=== PATIENT | female | born 1960 | race Caucasian/White ===

== ENCOUNTER 2022-02-19 12:19 | Observation (INO) | payer MEDICAID, SELFPAY ==
[2022-02-19] VITALS (14 sets, daily range): BP systolic 121–198; BP diastolic 58–89; PULSE 64–78; RESP 6–18; TEMP 36.1–36.8; O2SAT 92–97; BMI 22.6; BMI 22.2
--- NOTE | 2022-02-19 12:33 | CT_ITS ---
STUDY: CT HEAD STROKE PROTOCOL W/O CONTRAST INJECTION REASON FOR EXAM: Female, 61 years old. Neuro deficit, acute, stroke suspected RADIATION DOSAGE (If Supplied By Facility): CTDIvol = ( 44.99 ) mGy, DLP = ( 745.49 ) mGycm TECHNIQUE: Transaxial CT imaging of the brain was performed without administration of intravenous contrast material. Individualized dose optimization techniques were used for this CT. COMPARISON: No relevant priors. FINDINGS: Normal soft tissue structures. Normal calvarium. Normal size ventricles and extra-axial spaces for the patient''s age. Normal white matter tracts of the cerebral hemispheres. Normal basal ganglia and thalami. Normal brainstem. Normal cerebellum. There is no intracranial hemorrhage. There are no findings of an acute ischemic infarction. Minimal mucosal thickening along the inferior lateral aspect of the right maxillary sinus. ASPECT score: 10 CT/STROKE Brain/Head without Cont IMPRESSION: Normal unenhanced CT scan of the brain. N.B. : The above Results were Read Back by Joe Calabrese MD to Chino Ortiz and understanding confirmed on 02/19/2022 12:49:03 (ET). Electronically Signed: Joe Calabrese MD at 12:50 EDT ,
--- NOTE | 2022-02-19 12:33 | EKG12_ITS ---
Test Reason : STROKE Blood Pressure : / mmHG Vent. Rate : 077 BPM Atrial Rate : 077 BPM P-R Int : 182 ms QRS Dur : 096 ms QT Int : 380 ms P-R-T Axes : 057 054 066 degrees QTc Int : 430 ms Normal sinus rhythm Normal ECG Confirmed by JESU GUERRERO, VALERY ([id number]), photography editor NORMA MIRANDA ([id number]) on 02/25/2022 12:39:52 PM Referred By: RONIT Confirmed By:VALERY NAILS MD
--- NOTE | 2022-02-19 12:33 | NURSING ---
1232 STROKE ALERT CALLED
--- NOTE | 2022-02-19 12:34 | CT_ITS ---
STUDY: CTA HEAD AND NECK WITH CONTRAST REASON FOR EXAM: Female, 61 years old. Neuro deficit, acute, stroke suspected RADIATION DOSAGE (If Supplied By Facility): CTDIvol = ( 19.29 ) mGy, DLP = ( 662.46 ) mGycm TECHNIQUE: CT angiography was performed with a multi-detector CT scanner. Data acquisition was obtained from the skull base through the vertex following intravenous administration of IV 100mL Isovue-370. MIP images were reconstructed from the axial data set. Post-processing of the angiographic images was performed, with multiplanar reformation and 3D reconstruction. Individualized dose optimization techniques were used for this CT. COMPARISON: No relevant priors. FINDINGS: Normal bilateral petrous carotid arteries. Normal right cavernous carotid artery with a normal supraclinoid bifurcation. Normal left cavernous carotid artery with a normal supraclinoid bifurcation. Normal right A1 segments of the anterior cerebral artery. Normal left A1 segments of the anterior cerebral artery. Normal intact anterior communicating artery (ACOM). Normal bilateral A2 segments of the anterior cerebral arteries. Normal right M1 and M2 segments of the middle cerebral arteries, with a normal M1 bifurcation. Normal left M1 and M2 segments of the middle cerebral arteries, with a normal M1 bifurcation. Normal right posterior communicating artery (PCOM). Normal left posterior communicating artery (PCOM). Normal bilateral vertebral arteries. Normal basilar artery with a normal basilar bifurcation. The visualized bilateral superior cerebellar (SCA) arteries are normal. Normal bilateral P1, P2 and visualized P3 segments of the posterior cerebral arteries. There is no demonstrated aneurysm of the [place] of [place]. Minimal mucosal thickening of the right maxillary sinus. AORTIC ARCH: There is minimal atherosclerotic calcific plaque formation of the aortic arch and great vessels arising from the aortic arch, without a hemodynamically significant stenosis. There is a normal origin of the brachiocephalic, left common carotid, and left subclavian arteries. Mild atherosclerotic plaque formation at the origin of the left subclavian artery. RIGHT CAROTID ARTERIES: Normal right common carotid artery (CCA). Normal right common carotid bulb. There is mild atherosclerotic plaque formation of the origin of the right internal carotid artery with less than 50% cross sectional diameter stenosis. Normal visualized cervical portion of the right internal carotid artery. Normal origin of the right external carotid artery (ECA). LEFT CAROTID ARTERIES: Normal left common carotid artery (CCA). Normal left common carotid bulb. There is mild atherosclerotic plaque formation of the origin of the left internal carotid artery with less than 50% cross sectional diameter stenosis. Normal visualized cervical portion of the left internal carotid artery. Normal origin of the left external carotid artery (ECA). VERTEBRAL ARTERIES: Normal bilateral vertebral arteries. CT/STROKE CTA Head AND Neck W/Con IMPRESSION: Minimal calcific plaque formation at the origin of the right and left internal carotid arteries. N.B. : The above Results were Read Back by Joe Calabrese MD to Chino Ortiz and understanding confirmed on 02/19/2022 13:05:25 (ET). Electronically Signed: Joe Calabrese MD at 13:06 EDT ,
--- NOTE | 2022-02-19 12:34 | ED.VIS.STROK ---
HPI History of Present Illness Chief Complaint: Numb/Ting Informant: patient and friend Narrative Narrative: Brought in here by private vehicle from work and coworker noted her left-sided facial droop an hour prior to arrival onset would be 1130. Patient states she is not been feeling well for 3 days just feeling fatigued. No cough no vomiting diarrhea no urinary symptoms. She went to work at 10 AM, reported that a coworker stated she did not look well however did not report any facial drooping noticed at that time. Patient was sitting down the table with a coworker that is currently present came in noted the drooping. He states he had recent Bah's palsy therefore he recognized this. She was brought here for evaluation. She denies any headache. She is on metoprolol for history of tremors she states she takes other medications unknown at this time. She is not a diabetic. She denies any stroke history. However she does report trouble with thinking. Prior similar symptoms: No PFSH PFSH Medical History Alcohol abuse Anxiety Depression Diabetes GERD (gastroesophageal reflux disease) Hyperthyroidism Hypothyroidism Migraines Smoker Home Medications Multi-Day with Iron 1 tab PO DAILY 02/19/22 [History Last Taken Unknown] atorvastatin [Lipitor] 40 mg PO QHS 02/19/22 [History Last Taken Unknown] calcium carbonate 600 mg PO QHS 02/19/22 [History Last Taken Unknown] cholecalciferol (vitamin D3) [Vitamin D3] 50 mcg PO QHS 02/19/22 [History Last Taken Unknown] escitalopram oxalate [Lexapro] 20 mg PO DAILY 02/19/22 [History Last Taken Unknown] naproxen sodium [Aleve] 440 mg PO DAILY 02/19/22 [History Last Taken Unknown] omeprazole 40 mg PO DAILY 02/19/22 [History Last Taken Unknown] propranolol 40 mg PO QHS 02/19/22 [History Last Taken Unknown] valacyclovir [Valtrex] 500 mg PO DAILY 02/19/22 [History Last Taken Unknown] aspirin 81 mg PO DAILY #30 tab 02/20/22 [Rx Last Taken Unknown] Allergy/AdvReac Type Severity Reaction Status Date / Time No Known Allergies Allergy Verified 02/19/22 12:23 Family History (Updated 02/19/22 @ 15:42 by Bela Espinal AUTOMATION ENGINEER, AUTOMATION ENGINEER-C) Father CAD (coronary artery disease) Heart disease Mother No cardiac disease Surgical History (Updated 02/19/22 @ 15:42 by Bela Espinal NP, AUTOMATION ENGINEER-C) Hx of tonsillectomy S/P tubal ligation Social History (Updated 02/19/22 @ 15:45 by Bela Espinal NP, AUTOMATION ENGINEER-C) Smoking Status: Current every day smoker tobacco type: cigarettes alcohol intake: former details: Sober substance use type: does not use ROS ROS ED Constitutional Constitutional ED: Denies chills, fever(s) or sweats Eyes Eyes: Denies change in vision ENT ENT ED: Denies dysphagia or sore throat Cardiovascular Cardiovascular: Denies chest pain, leg edema, palpitations or racing heartbeat Respiratory/Chest Respiratory/Chest: Denies cough, dyspnea or dyspnea on exertion Gastrointestinal Gastrointestinal: Denies abdominal pain, diarrhea, nausea or vomiting Genitourinary Genitourinary ED: Denies dysuria, hematuria or urinary frequency Musculoskeletal Musculoskeletal: Denies back pain, extremity pain or neck pain Integumentary Denies rash or wounds Neurologic Neurologic: Reports weakness; Denies headache(s) or paresthesias EXAM Physical Exam Const Vital Signs: 02/19/22 12:21 02/19/22 12:43 02/19/22 13:03 Temperature 96.9 F L Temperature Source Temporal Pulse Rate 76 73 Respiratory Rate 15 18 Blood Pressure 185/86 H 189/88 H Blood Pressure Mean 119 121 Pulse Ox 97 95 Oxygen Delivery Method Room Air Room Air 02/19/22 13:12 02/19/22 13:18 02/19/22 13:30 Temperature Temperature Source Pulse Rate 71 69 69 Respiratory Rate 14 15 16 Blood Pressure 198/89 H 180/77 H 188/80 H Blood Pressure Mean 125 111 116 Pulse Ox 97 96 95 Oxygen Delivery Method Room Air Room Air Room Air Positive well nourished and well developed General Appearance ED: well developed and NAD HEENT Reports moist mucous membranes normocephalic and atraumatic Eyes PERRL, EOMs intact bilaterally and conjunctivae normal General Eye ED: Yes normal appearance of both eyes Neck no lymphadenopathy and supple General: Negative for tenderness Chest Wall Chest: Negative for tenderness Resp normal respiratory effort and normal air movement Effort and Inspection: symmetric chest movement; Negative for respiratory distress Cardio regular rate, regular rhythm and no murmurs Peripheral Pulses: pulses 2+ throughout GI normal to inspection, nondistended, normoactive bowel sounds and non-tender Palpation: Negative for guarding or rebound tenderness present Back/Spine no CVA tenderness and no thoracic nor lumbar tenderness Extremity normal to inspection General Extremety ED: Negative for edema or tenderness General Extremity: Negative for edema Neuro oriented x3 and no sensory deficits noted Sensorium / Orientation: awake and alert Skin no rashes or lesions noted and no wounds STROKE Vital Signs/Narrative: Vital Signs Temp Pulse Resp BP Pulse Ox 02/19/22 13:30 69 16 188/80 H 95 02/19/22 13:18 69 15 180/77 H 96 02/19/22 13:12 71 14 198/89 H 97 02/19/22 13:03 73 18 189/88 H 95 02/19/22 12:21 96.9 F L 76 15 185/86 H 97 Inital Vital Signs reviewed: Yes NIHSS Initial: 1a Level of Consciousness: 0 1b LOC Questions (Score 2 if aphasic/stupor): 0 1c LOC Commands (Only score 1st attempt): 0 2 Best Gaze (If aphasic, use reflexive mvmts.): 0 3 Visual: 0 4 Facial Palsy: 1 5 Motor Arm Right (UN = amputation/fusion): 0 5 Motor Arm Left: 0 6 Motor Leg Right: 0 6 Motor Leg Left: 0 7 Limb ataxia (Only + if out of proportion): 0 8 Sensory (Aphasia/stupor=0 or 1, coma=2): 1 9 Best Language: 0 10 Dysarthria (mute, coma=2, intubated=UN): 0 11 Extinction and Inattention (only scored if +): 0 Total Score: 2 2nd Follow up: 1a Level of Consciousness: 0 1b LOC Questions (Score 2 if aphasic/stupor): 0 1c LOC Commands (Only score 1st attempt): 0 2 Best Gaze (If aphasic, use reflexive mvmts.): 0 3 Visual: 0 4 Facial Palsy: 1 5 Motor Arm Right (UN = amputation/fusion): 0 5 Motor Arm Left: 0 6 Motor Leg Right: 0 6 Motor Leg Left: 0 7 Limb ataxia (Only + if out of proportion): 1 8 Sensory (Aphasia/stupor=0 or 1, coma=2): 1 9 Best Language: 0 10 Dysarthria (mute, coma=2, intubated=UN): 0 11 Extinction and Inattention (only scored if +): 0 Total Score: 3 MDM MDM MDM Narrative Medical decision making narrative: Patient is NIH of 2 secondary to mild asymmetry of the left lip along with paresthesias left side of the face. Noted time of onset an hour ago, stroke team was activated. Initial blood pressure 185/86. EKG returned sinus rhythm. 1300: Stroke neurologist, Dr. Hurtado in the room I was present for evaluation, agrees that she is presenting with strokelike symptoms agrees with deficits she had paresthesias left side during reevaluation and she had mild ataxia of the left lower leg. She had slight lip droop. Therefore NIH of 3. She was able to ambulate down the north with neurology evaluation, due to no difficulties walking, she recommended holding TPA at this time. She recommended getting her blood pressure below 180. CT angiogram negative for LVO. She states with blood pressure down and symptoms clinically not worsening with the lower blood pressure we will plan to give baby aspirin and loaded with Plavix 600 mg and admission for stroke work-up. Repeat blood pressure systolic 198/89 will give labetalol. Will reevaluate the patient. 1345: Blood pressure improving goal systolic around 180 per neurology. No worsening deficits. Baby aspirin loading dose of Plavix of 600 mg ordered per recommendations of neurology. Will discuss with hospital team for admission for further stroke work-up. Chest x-ray 1 view reviewed by myself shows no acute process. Labs stable. 1405: I spoke with hospitalist Dr. Robles, updated patient's presentation and findings. She will be admitted to PCU. Lab Data Attestation: I reviewed the patient's lab results. Labs: Laboratory Results - last 24 hr 02/19/22 02/19/22 02/19/22 12:34 12:35 12:35 WBC 11.1 H RBC 4.07 L Hgb 13.1 Hct 39.5 MCV 97.1 MCH 32.2 H MCHC 33.2 RDW Std Deviation 47.1 H RDW Coeff of Анна 13.1 Plt Count 300 MPV 9.0 Immature Gran % (Auto) 0.300 Neut % (Auto) 59.5 Lymph % (Auto) 29.8 Baldwin % (Auto) 8.5 Eos % (Auto) 1.5 Baso % (Auto) 0.4 Absolute Neuts (auto) 6.6 Absolute Lymphs (auto) 3.31 Nucleated RBC % 0 PT 12.3 INR 1.0 APTT 33.1 Sodium Potassium Chloride Carbon Dioxide Anion Gap BUN Creatinine Estim Creat Clear Calc Est GFR (MDRD) Af Amer Est GFR (MDRD) Non-Af BUN/Creatinine Ratio Glucose Calcium Troponin I High Sens POC Glucose 114 H 02/19/22 12:35 WBC RBC Hgb Hct MCV MCH MCHC RDW Std Deviation RDW Coeff of Анна Plt Count MPV Immature Gran % (Auto) Neut % (Auto) Lymph % (Auto) Baldwin % (Auto) Eos % (Auto) Baso % (Auto) Absolute Neuts (auto) Absolute Lymphs (auto) Nucleated RBC % PT INR APTT Sodium 138 Potassium 4.4 Chloride 106 Carbon Dioxide 29.0 Anion Gap 3 L BUN 18 Creatinine 0.66 Estim Creat Clear Calc 70.80 Est GFR (MDRD) Af Amer 117 Est GFR (MDRD) Non-Af 97 BUN/Creatinine Ratio 27.4 H Glucose 100 Calcium 9.5 Troponin I High Sens < 3 L POC Glucose Radiography Diagnostic Testing: Clinical Impression(s) from Imaging Studies Brain CT 02/19/22 12:33 IMPRESSION: Normal unenhanced CT scan of the brain. N.B. : The above Results were Read Back by Joe Calabrese MD to Chino Ortiz and understanding confirmed on 02/19/2022 12:49:03 (ET). Electronically Signed: Joe Calabrese MD at 12:50 EDT , ADDENDUM: 02/19/22 1257 IMPRESSION: Normal unenhanced CT scan of the brain. N.B. : The above Results were Read Back by Joe Calabrese MD to Chino Ortiz and understanding confirmed on 02/19/2022 12:49:03 (ET). Electronically Signed: Joe Calabrese MD at 12:50 EDT , Head/Neck CTA 02/19/22 12:34 IMPRESSION: Minimal calcific plaque formation at the origin of the right and left internal carotid arteries. N.B. : The above Results were Read Back by Joe Calabrese MD to Chino Ortiz and understanding confirmed on 02/19/2022 13:05:25 (ET). Electronically Signed: Joe Calabrese MD at 13:06 EDT , ADDENDUM: 02/19/22 1313 IMPRESSION: Minimal calcific plaque formation at the origin of the right and left internal carotid arteries. N.B. : The above Results were Read Back by Joe Calabrese MD to Chino Ortiz and understanding confirmed on 02/19/2022 13:05:25 (ET). Electronically Signed: Joe Calabrese MD at 13:06 EDT , Chest X-Ray 02/19/22 13:35 IMPRESSION: Normal x-ray examination of the chest. Electronically Signed: Joe Calabrese MD at 13:45 EDT , EKG Initial EKG: Attestation: I personally reviewed and interpreted this EKG as follows: Comments: Normal sinus rhythm rate of 77, no ST or T wave changes. Stroke Documentation Questions Stroke Team Activated: Yes Reviewed Inclusion/Exclusion criteria: Yes Was Patient considered for Endovascular Intervention?: Yes-CTA +,PT transferred for further eval of endovascular intervention IV Alteplase (t-PA) Administered: No No contraindications for IV Alteplase (t-PA) administration.: No Alteplase (t-PA) risks, benefits, alternative discussed: Yes Not given: Patient refusal: No (Not recommended by stroke neurologist.) Critical Care Time Critical Care Time: Yes Critical care time (excluding procedures): 30-74 minutes, Discussing w/Patient &/or Family/Plating Equipment Tender, Discussing w/Consultants, Arranging Admission or Transfer, Performing Direct Patient Care at Bedside and - (35minutes) Discharge Plan Dx/Rx/DC Orders Clinical Impression: Acute CVA (cerebrovascular accident), Paresthesia, Elevated blood pressure reading in office without diagnosis of hypertension Disposition Disposition: Acute Care Hospital [facility] Discharge Date/Time: 02/19/22 14:42
--- NOTE | 2022-02-19 12:36 | NURSING ---
NO OLD EKGS
[2022-02-19 12:40] LABS: Bedside Glucose 114 mg/dL (74-106)
[2022-02-19 12:49] LABS: Absolute Lymphocyte Count 3.31 X10^3/uL (0.83-4.51); Absolute Neutrophil Count 6.6 X10^3/uL (2.0-7.7); Basophil# 0.05 X10^3/uL; Basophil% 0.4 % (0-1); Eosinophil# 0.17 X10^3/uL; Eosinophils% 1.5 % (0-5); Hematocrit 39.5 % (37-47); Hemoglobin 13.1 g/dL (12.0-15.0); Lymphocyte # 3.31 X10^3/ul (0.83-4.51); Lymphocyte % 29.8 % (19-41); Mean Corp Hgb Conc 33.2 g/dL (32-36); Mean Corpuscular Hgb 32.2 pg (27.0-32.0); Mean Corpuscular Volume 97.1 fL (81-99); Monocyte# 0.95 X10^3/uL; Monocyte% 8.5 % (0-10); NRBC Flagged by Analyzer 0 % (0-5); Neutrophil # 6.61 X10^3/uL (2.7-7.7); Neutrophil % 59.5 % (47-70); Platelet Count 300 K/mm3 (150-450); RBC Distribution Width CV 13.1 % (11.6-14.6); RBC Distribution Width SD 47.1 fl (35.1-43.9); Red Blood Count 4.07 M/mm3 (4.2-5.4); White Blood Count 11.1 K/mm3 (4.4-11.0)
[2022-02-19 12:58] LABS: Partial Thromboplast Time 33.1 Seconds (24.1-36.2); Prothrombin Time (Protime)PT. 12.3 SECONDS (11.7-14.9)
[2022-02-19 13:08] LABS: Anion Gap 3 (5-15); BUN 18 mg/dL (7-18); BUN/Creat Ratio 27.4 RATIO (10-20); Calcium,Total 9.5 mg/dL (8.5-10.1); Chloride 106 mmol/L (98-107); Creatinine, Serum 0.66 mg/dL (0.55-1.02); EST Glomerular Filtration Rate 97 mL/min (>60); Est Glom Filt Rate - Afr Amer 117 mL/min (>60); Glucose 100 mg/dL (74-106); Potassium 4.4 mmol/L (3.5-5.1); Sodium Level 138 mmol/L (136-145); Troponin-I HS < 3 pg/mL (3.0-54.0)
[2022-02-19] MEDS: Labetalol (Prefilled) 20 MG/4 ML IV (13:13)
--- NOTE | 2022-02-19 13:35 | RAD_ITS ---
STUDY: X-RAY CHEST REASON FOR EXAM: Female, 61 years old. Neuro deficit, acute, stroke suspected TECHNIQUE: Single AP portable view of the chest. COMPARISON: None. FINDINGS: EKG electrodes are seen. The lungs are clear and expanded. There is no demonstrated pleural abnormality. Normal size heart. Normal mediastinum and jose elias. Normal visualized pulmonary arteries. Normal visualized aortic arch and descending thoracic aorta. Normal visualized thoracic spine. Normal visualized ribs, clavicles, and shoulders. There is no demonstrated abnormality of the visualized soft tissue structures of the upper abdomen. RAD/Chest 1 View IMPRESSION: Normal x-ray examination of the chest. Electronically Signed: Joe Calabrese MD at 13:45 EDT ,
[2022-02-19] MEDS: Aspirin 81 MG TAB.CHEW PO (14:09)
[2022-02-19] MEDS: Clopidogrel Bisulfate 300 MG Tablet 600 MG PO (14:09)
--- NOTE | 2022-02-19 14:16 | CM.ED ---
MARIANN Note Referral Source: Case Find Referral Reason: Stroke Alert SW met with patient and her daughter. SW provided emotional support. SW remains available if needs arise. Becca ESCOBEDO
--- NOTE | 2022-02-19 14:23 | NURSING ---
PCU OBS NATHALIA CVA
--- NOTE | 2022-02-19 15:05 | CASEMGMT ---
RN CM Face to Face with patient for initial transition planning/care coordination assessment. RN CM introduced self and role at [facility]. Patient lying in bed, alert and oriented, daughter at bedside. Patient willing to participate in assessment and is able to answer all questions appropriately. Care providers, pharmacy, and demographics verified. Patient wishes to discharge home, denies need for home health at this time. Patient states she has no further needs or concerns at this time. CM to follow for discharge planning needs that may arise. PCP: [place] Specialists: none Preferred Pharmacy: [facility] Insurance: [employer] Prescription Benefit: yes Living Will/HPOA: none LNOK: son, daughter Living Arrangements: Patient lives with son in a single story home and 1 step and grab bar to enter the home. Patient states she is independent at home Transportation: self, son, daughter DME/HHC: Patient states she has grab bars in bathroom at home. Patient denies previous HHC or SNF. Patient states she smokes 1/2PPD of cigarettes per day. Disposition Plan: Patient to discharge home with family support and follow-up plans in place. Jahaira WARDN, RN, CM
--- NOTE | 2022-02-19 15:07 | MRI_ITS ---
STUDY: MRI BRAIN WITH AND WITHOUT CONTRAST REASON FOR EXAM: Female, 61 years old. parathesias L facial droop TECHNIQUE: Standardized multiplanar fat and water weighted pulse sequences were obtained. IV 12cc dotarem was administered for the contrast portion of the examination. COMPARISON: CT and CTA head 02/19/2022 FINDINGS: Normal size of the ventricles and extra-axial spaces for the patient''s age. Normal white matter tracts of the supratentorial brain. There are at least 2 nonspecific white matter lesions in the centrum semiovale on the left measuring up to 4 mm. There is no evidence for recent intracranial ischemia or other cause of cytotoxic edema on diffusion weighted imaging (DWI). Normal bilateral basal ganglia. Normal thalami. There is no extra-axial fluid accumulation. Normal flow voids within the major intracranial circulation suggesting patency by spin echo criteria. Normal venous enhancement. There is no enhancing intra-axial or extra-axial abnormality. Normal sella turcica, pituitary gland, infundibular stalk, optic chiasm and hypothalamus. Normal tectal plate and pineal gland. Normal midbrain, sammy and medulla. Normal cerebellum. Normal basal cisterns. Normal bilateral temporal bones. Normal bilateral internal auditory canals. No demonstrated orbital abnormality, within the constraints of a routine brain study. Follow up right maxillary sinus. Normal calvarium and skull base. Normal visualized soft tissue structures. Normal visualized upper cervical spine. MRI/Brain W/WO Contrast IMPRESSION: At least 2 nonspecific white matter lesions. Differential considerations include microangiopathic changes or demyelination. Electronically Signed: Jesus Frost MD at 18:36 EDT ,
[2022-02-19] MEDS: 0.9% Saline Lock 10 ML Syringe IV ×2 (15:22→21:35)
[2022-02-19] MEDS: LORazepam 2 MG/ML Syringe 1 MG IV (15:22)
--- NOTE | 2022-02-19 15:24 | ECHOD_ITS ---
Reason For Study: Dyspnea/SOB Procedure This was a 2D Doppler, Color Flow transthoracic echocardiogram. Bubble study performed. Exam performed portable in patient room. Left Ventricle Normal left ventricle. The estimated ejection fraction is 55-60 %. Right Ventricle Normal right ventricle. Normal systolic function. Atria Normal left atrium. Normal right atrium. Saline contrast study demonstrates small right to left interatrial shunt. Mitral Valve The mitral valve is structurally normal. No prolapse or stenosis seen. Trivial mitral valve insufficiency. Tricuspid Valve Normal tricuspid valve. Trivial tricuspid valve insufficiency. Aortic Valve Normal aortic valve. No aortic valve insufficiency. Pulmonic Valve The pulmonic valve is not well visualized. Great Vessels Normal aortic root. Pericardium/Pleural No pericardial effusion. Medication Performed a rapid injection of agitated mix of 9 cc saline and 1cc air to assess for atrial septal defect. MMode/2D Measurements & Calculations LVIDd: 3.6 cm IVSd: 1.1 cm Ao root diam: 3.0 cm LVIDs: 1.8 cm LVPWd: 0.98 cm LA dimension: 3.8 cm RVDd: 3.5 cm FS: 49.9 % LAV(MOD-bp): 34.2 ml LA A4 area: 16.5 cm2 RA A4 area: 15.7 cm2 LAV(MOD-bp) Indexed: 21.6 ml/m2 LAV(MOD-sp2): 27.2 ml LAV(MOD-sp4): 39.4 ml Time Measurements MV dec time: 0.24 sec Doppler Measurements & Calculations MV E max gerardo: 73.3 cm/sec Lat Peak E' Gerardo: 7.0 cm/sec Med Peak E' Gerardo: 7.4 cm/sec MV A max gerardo: 84.1 cm/sec E/E' lat: 10.5 E/E' med: 10.0 MV E/A: 0.87 MV V2 max: 93.4 cm/sec MV P1/2t max gerardo: 92.5 cm/sec Ao V2 max: 167.6 cm/sec MV max P.5 mmHg MV P1/2t: 84.3 msec Ao max P.2 mmHg MV V2 mean: 51.7 cm/sec MV dec slope: 321.3 cm/sec2 MV mean P.3 mmHg MV V2 VTI: 26.9 cm MVA(P1/2t): 2.6 cm2 LV V1 max: 148.3 cm/sec PA V2 max: 108.8 cm/sec TR max gerardo: 270.1 cm/sec LV V1 max P.8 mmHg TR max P.2 mmHg ECHO/Echo Complete Interpretation Summary The estimated ejection fraction is 55-60 %. RVSP calculated 34 mmhg No previous study to compare Ordering Physician: Jerry Robles Referring Physician: Shawn Avila Performed By: Abundio Ramos RCS
--- NOTE | 2022-02-19 15:38 | HP.PCM.HOS_ITS ---
Documented by User: Bela Espinal REHABILITATION CONSULTANT, REHABILITATION CONSULTANT-C 02/19/22 15:50 HPI - General General Date of Admission: 02/19/22 HPI Narrative QUEENIE DAVIS, is a 61 F who presents to the emergency room due to left-sided numbness, tingling. Patient reports this began while she was at work today. She states her coworker noticed left-sided facial droop as well. She denies s peech or vision changes. She denies left-sided weakness however states her left side feels different than her right side. She states her symptoms have resolved at this time. She denies history of headaches however states she has intermittent sharp pains in her head that go away. Patient also complains of generalized fatigue. She states she had Covid in November of this year and since then has not had any energy. She does report shortness of breath with exertion and intermittent sharp chest pain. She denies cardiac history. She states she attributed shortness of breath to smoking history. She denies history of TIA/CVA. She reports a history of essential tremors, anxiety/depression, hyperlipidemia, GERD, tobacco dependence. [facility] Medical History Alcohol abuse Anxiety Depression Diabetes GERD (gastroesophageal reflux disease) Hyperthyroidism Hypothyroidism Migraines Smoker Home Medications atorvastatin [Lipitor] 40 mg PO QHS 02/19/22 [History Last Taken Unknown] calcium carbonate [Dano-600] 600 mg PO QHS 02/19/22 [History Last Taken Unknown] cholecalciferol (vitamin D3) [Vitamin D3] 50 mcg PO QHS 02/19/22 [History Last Taken Unknown] escitalopram oxalate [Lexapro] 20 mg PO DAILY 02/19/22 [History Last Taken Unknown] dagngcplpbof-qmdt-nvfke acid [Multi-Day with Iron] 1 tab PO DAILY 02/19/22 [History Last Taken Unknown] naproxen sodium [Aleve] 440 mg PO DAILY 02/19/22 [History Last Taken Unknown] omeprazole 40 mg PO DAILY 02/19/22 [History Last Taken Unknown] propranolol 40 mg PO QHS 02/19/22 [History Last Taken Unknown] valacyclovir [Valtrex] 500 mg PO DAILY 02/19/22 [History Last Taken Unknown] Allergy/AdvReac Type Severity Reaction Status Date / Time No Known Allergies Allergy Verified 02/19/22 12:23 Family History (Updated 02/19/22 @ 15:42 by Bela Espinal NP, REHABILITATION CONSULTANT-C) Father CAD (coronary artery disease) Heart disease Mother No cardiac disease Surgical History (Updated 02/19/22 @ 15:42 by Bela Espinal NP, REHABILITATION CONSULTANT-C) Hx of tonsillectomy S/P tubal ligation Social History (Updated 02/19/22 @ 15:45 by Bela Espinal NP, REHABILITATION CONSULTANT-C) Smoking Status: Current every day smoker tobacco type: cigarettes alcohol intake: former details: Sober substance use type: does not use ROS Constitutional Constitutional: Reports fatigue; Denies change in weight, chills, fever(s) or weakness Cardiovascular Cardiovascular: Reports chest pain; Denies edema, lightheadedness, palpitations or syncope Respiratory/Chest Respiratory/Chest: Reports cough and shortness of breath with exertion; Denies dyspnea, productive cough, shortness of breath at rest or wheezing Gastrointestinal Gastrointestinal: Denies abdominal pain, constipation, diarrhea, nausea or vomiting Genitourinary Genitourinary: Denies burning urination, difficulty urinating, dysuria, he maturia, urinary frequency, urinary incontinence or urinary urgency Musculoskeletal Musculoskeletal: Denies back pain, joint pain or muscle weakness Integumentary Integumentary: Denies erythema, lesions, rash or wounds Neurologic Neurologic: Reports numbness, paresthesias and tingling; Denies abnormal speech, confusion, dizziness, focal weakness, seizure-like activity or syncope Psychiatric Psychiatric: Reports anxiety and depression Hematologic/Lymphatic Hematologic/Lymphatic: Denies anemia, easy bleeding or easy bruising Allergic/Immunologic Allergic/Immunologic: Denies hives or asthma Vital Signs Vital Signs Vital Signs: 02/19/22 12:21 02/19/22 12:43 02/19/22 13:03 Temperature 96.9 F L Temperature Source Temporal Pulse Rate 76 73 Respiratory Rate 15 18 Respiratory Effort Respiratory Depth Respiratory Pattern Blood Pressure 185/86 H 189/88 H Blood Pressure Mean 119 121 Blood Pressure Source Blood Pressure Position Blood Pressure Location Pulse Ox 97 95 Oxygen Delivery Method Room Air Room Air 02/19/22 13:12 02/19/22 13:18 02/19/22 13:30 Temperature Temperature Source Pulse Rate 71 69 69 Respiratory Rate 14 15 16 Respiratory Effort Respiratory Depth Respiratory Pattern Blood Pressure 198/89 H 180/77 H 188/80 H Blood Pressure Mean 125 111 116 Blood Pressure Source Blood Pressure Position Blood Pressure Location Pulse Ox 97 96 95 Oxygen Delivery Method Room Air Room Air Room Air 02/19/22 14:05 02/19/22 14:30 02/19/22 15:09 Temperature 98.0 F 97.2 F L Temperature Source Oral Temporal Pulse Rate 64 65 65 Respiratory Rate 16 6 L 18 Respiratory Effort Respiratory Depth Respiratory Pattern Blood Pressure 161/81 H 164/72 H 167/80 H Blood Pressure Mean 107 102 109 Blood Pressure Source Monitor Blood Pressure Position Semi-Fowlers Blood Pressure Location Right Arm Pulse Ox 96 97 95 Oxygen Delivery Method Room Air Room Air Room Air 02/19/22 15:29 Temperature Temperature Source Pulse Rate Respiratory Rate Respiratory Effort Normal Non-Labored Respiratory Depth Normal Respiratory Pattern Normal Blood Pressure Blood Pressure Mean Blood Pressure Source Blood Pressure Position Blood Pressure Location Pulse Ox Oxygen Delivery Method Room Air Weight Weight: 125 lb 10.616 oz Body Mass Index (BMI) 22.2 Physical Exam Const alert, oriented x3 and no apparent distress Constitutional Narrative: Orientation / Consciousness: awake, oriented to person, oriented to place and oriented to time HEENT normocephalic and moist oral mucous membranes Eyes PERRL, EOMs intact bilaterally and conjunctivae normal Neck no lymphadenopathy Resp normal respiratory effort and clear to auscultation bilaterally Cardio regular rate, regular rhythm and no murmurs Peripheral Pulses: pulses 2+ throughout GI normal to inspection, nondistended, normoactive bowel sounds, non-tender and non-distended Extremity normal to inspection Skin no rashes or lesions noted Lesions: no lesions Rashes: no rashes Trauma: no lacerations or abrasions Neuro CN's II-XII intact bilaterally, no focal motor deficits, no sensory deficits noted and deep tendon reflexes 2+ bilaterally Neuro Narrative: Mild left facial droop that resolved with smiling. Psych mental status grossly normal and affect normal Results Lab / Micro Data Result Diagrams: 02/19/22 12:35 02/19/22 12:35 Labs: Laboratory Results - last 24 hr 02/19/22 12:34: POC Glucose 114 H 02/19/22 12:35: WBC 11.1 H, RBC 4.07 L, Hgb 13.1, Hct 39.5, MCV 97.1, MCH 32.2 H , MCHC 33.2, RDW Std Deviation 47.1 H, RDW Coeff of Анна 13.1, Plt Count 300, MPV 9.0, Immature Gran % (Auto) 0.300, Neut % (Auto) 59.5, Lymph % (Auto) 29.8, Hardin % (Auto) 8.5, Eos % (Auto) 1.5, Baso % (Auto) 0.4, Absolute Neuts (auto) 6.6, Absolute Lymphs (auto) 3.31, Nucleated RBC % 0 02/19/22 12:35: PT 12.3, INR 1.0, APTT 33.1 02/19/22 12:35: Sodium 138, Potassium 4.4, Chloride 106, Carbon Dioxide 29.0, Anion Gap 3 L, BUN 18, Creatinine 0.66, Estim Creat Clear Calc 70.80, Est GFR (MDRD) Af Amer 117, Est GFR (MDRD) Non-Af 97, BUN/Creatinine Ratio 27.4 H, Glucose 100, Calcium 9.5, Troponin I High Sens < 3 L Radiology Impression Brain CT 02/19/22 12:33 IMPRESSION: Normal unenhanced CT scan of the brain. N.B. : The above Results were Read Back by Joe Calabrese MD to Chino Ortiz and understanding confirmed on 02/19/2022 12:49:03 (ET). Electronically Signed: Joe Calabrese MD at 12:50 EDT , ADDENDUM: 02/19/22 1257 IMPRESSION: Normal unenhanced CT scan of the brain. N.B. : The above Results were Read Back by Joe Calabrese MD to Chino Ortiz and understanding confirmed on 02/19/2022 12:49:03 (ET). Electronically Signed: Joe Calabrese MD at 12:50 EDT , Head/Neck CTA 02/19/22 12:34 IMPRESSION: Minimal calcific plaque formation at the origin of the right and left internal carotid arteries. N.B. : The above Results were Read Back by Joe Calabrese MD to Chino Ortiz and understanding confirmed on 02/19/2022 13:05:25 (ET). Electronically Signed: Joe Calabrese MD at 13:06 EDT , ADDENDUM: 02/19/22 1313 IMPRESSION: Minimal calcific plaque formation at the origin of the right and left internal carotid arteries. N.B. : The above Results were Read Back by Joe Calabrese MD to Chino Ortiz and understanding confirmed on 02/19/2022 13:05:25 (ET). Electronically Signed: Joe Calabrese MD at 13:06 EDT , Chest X-Ray 02/19/22 13:35 IMPRESSION: Normal x-ray examination of the chest. Electronically Signed: Joe Calabrese MD at 13:45 EDT , Assessment & Plan Assessment/Plan (1) Acute CVA (cerebrovascular accident): PLAN: 1. Left-sided numbness/tingling-rule out CVA. Brain CT and CTA of head and neck unremarkable. MRI of brain ordered. PT/OT/ST. Aspirin, statin. Lipid profile in a.m. [facility]. Echo in a.m. 2. Elevated blood pressure without history of hypertension-permissive given #1. If stroke ruled out, will initiate regimen. As needed hydralazine. 3. Atypical chest pain-trend enzymes. Obtain echo. 4. Essential tremors-on propranolol. 5. Anxiety/depression-on Lexapro. 6. Hyperlipidemia-continue statin. Fasting lipid panel in a.m. 7. GERD-continue PPI. 8. Tobacco dependence-encouraged cessation. 9. History of COVID-19 11/2021 DVT prophylaxis-Lovenox subcu This patient was seen by MARGUERITE DanielleC under the supervision of Dr. Robles. Time spent examining patient, reviewing data and subsequent management of care: 17 Minutes Documented by User: Dr. Jerry Robles DO 02/19/22 17:48 HPI - General General Date of Admission: 02/19/22 [facility] Medical History Alcohol abuse Anxiety Depression Diabetes GERD (gastroesophageal reflux disease) Hyperthyroidism Hypothyroidism Migraines Smoker Home Medications atorvastatin [Lipitor] 40 mg PO QHS 02/19/22 [History Last Taken Unknown] calcium carbonate [Dano-600] 600 mg PO QHS 02/19/22 [History Last Taken Unknown] cholecalciferol (vitamin D3) [Vitamin D3] 50 mcg PO QHS 02/19/22 [History Last Taken Unknown] escitalopram oxalate [Lexapro] 20 mg PO DAILY 02/19/22 [History Last Taken Unknown] uiiskjymbxli-rlul-dlsva acid [Multi-Day with Iron] 1 tab PO DAILY 02/19/22 [History Last Taken Unknown] naproxen sodium [Aleve] 440 mg PO DAILY 02/19/22 [History Last Taken Unknown] omeprazole 40 mg PO DAILY 02/19/22 [History Last Taken Unknown] propranolol 40 mg PO QHS 02/19/22 [History Last Taken Unknown] valacyclovir [Valtrex] 500 mg PO DAILY 02/19/22 [History Last Taken Unknown] Allergy/AdvReac Type Severity Reaction Status Date / Time No Known Allergies Allergy Verified 02/19/22 12:23 Family History (Updated 02/19/22 @ 15:42 by Bela Espinal REHABILITATION CONSULTANT, REHABILITATION CONSULTANT-C) Father CAD (coronary artery disease) Heart disease Mother No cardiac disease Surgical History (Updated 02/19/22 @ 15:42 by Bela Espinal NP, REHABILITATION CONSULTANT-C) Hx of tonsillectomy S/P tubal ligation Social History (Updated 02/19/22 @ 15:45 by Bela Espinal REHABILITATION CONSULTANT, REHABILITATION CONSULTANT-C) Smoking Status: Current every day smoker tobacco type: cigarettes alcohol intake: former details: Sober substance use type: does not use Results Lab / Micro Data Result Diagrams: 02/19/22 12:35 02/19/22 12:35 Charges/Coding Addendum Addendum: Patient was seen and examined independently of Bela Espinal today, she came to the ER for evaluation of possible left facial droop and tingling over the left side of her face that was noticed today at work. Patient stated that the left and right sides of her body did not feel the same but she denied any focal weakness. Patient denied any speech or visual disturbances. On examination she appeared in good health and spirits, she does not appear to be in any distress. Vital signs as documented. Skin warm and dry and without overt rashes. Neck without JVD, thyroid appears normal, trachea is midline, neck is supple. Lungs clear, normal air movement was noted. Heart exam notable for regular rhythm, normal sounds and absence of murmurs, rubs or gallops. Abdomen unremarkable and without evidence of organomegaly, masses, or abdominal aortic enlargement, bowel sounds are present in all 4 quadrants, no abdominal tenderness was noted. Extremities nonedematous, no cyanosis was noted, no c lubbing was noted. Neuro: Cranial nerves II through XII are grossly intact, no focal motor deficits were noted, sensation to light touch and pinprick is intact, motor exam 5/5 throughout. Psych: Patient is alert and oriented x3, she does not appear anxious or depressed, she does not appear agitated. Work-up in the emergency room included a CT of the brain and a CT of the head and the neck-all of which were unremarkable, chest x-ray showed no acute process, patient's labs were unremarkable. At the time of her admission to the ER, stroke team was activated and she was seen by teleneurology, her NIH stroke score was 3. Patient was able to ambulate without any difficulties. Impression: #1 paresthesias of the left side of the face-etiology unclear, patient will have an MRI performed, I will not place the patient on an aspirin at this time, my examination did not show a definite left-sided facial droop. #2 hyperlipidemia-patient is on atorvastatin #3 chronic depression-patient takes Lexapro #4 GERD-patient is on omeprazole #5 fatigue-patient states she has been fatigued over the last 2 weeks, she also mentioned that she has intermittent sharp precordial chest pain, she also com plains that she is short of breath on exertion at times. For these reasons I have decided to order an echocardiogram on the patient. Patient states she was diagnosed with Covid in November of this year. I have reviewed Bela Espinal's history and physical including her medical assessment and plan of care and with the above additions endorse it. Total clinical time spent by myself addressing the patient's issues, reviewing the patient's medical data, and communicating with caregivers: 53 minutes Visit Charges OBSV E&M: 21174 Initial observation care L3
--- NOTE | 2022-02-19 16:11 | NURSING ---
Patient tolerated MRI well. PCU sending transporter.
[2022-02-19 16:32] LABS: Hemoglobin A1c 5.9 % (3.8-5.6)
[2022-02-19] MEDS: Propranolol 40 MG Tablet PO (21:34)
[2022-02-19] MEDS: Enoxaparin 40 MG/0.4 ML Syringe SC (21:35)
[2022-02-19] MEDS: Atorvastatin Calcium 40 MG Tablet PO (21:35)
[2022-02-20] VITALS (8 sets, daily range): BP systolic 111–152; BP diastolic 51–68; PULSE 58–84; RESP 18; TEMP 35.7–36.9; O2SAT 93–95; BMI 22.2
[2022-02-20 08:14] LABS: Cholesterol 165 mg/dL (200); High Density Lipoprotein 75 mg/dL; Triglycerides 116 mg/dL; Very Low Density Lipoprotein 23 mg/dL (5-40)
[2022-02-20] MEDS: Pantoprazole Sodium 40 MG Tablet PO (09:46)
[2022-02-20] MEDS: Acyclovir 200 MG Capsule 400 MG PO (09:46)
[2022-02-20] MEDS: Escitalopram Oxalate 20 MG Tablet PO (09:47)
[2022-02-20] MEDS: Enoxaparin 40 MG/0.4 ML Syringe SC (09:47)
--- NOTE | 2022-02-20 10:18 | TELEMED_ITS ---
[facility] has confirmed receipt of a request for visit. This document confirms receipt of the order initiating the consult. To find the results of the consultation, please view the patient's reports for the scanned Telemed Consult.
--- NOTE | 2022-02-20 14:42 | PCM.DC ---
Discharge Instructions Diet Discharge Diet: Low fat / Low cholesterol Activity Discharge Activity: Return to Normal Activity Dressing / Incision Call your doctor if you observe: Shortness of breath, Dizziness and Chest pain Follow Up Care Test Results: Test results from this visit will be discussed in further detail at your follow-up appointment, if applicable. Discharge Plan Admission Admit Date/Time: 02/19/22 15:02 Primary Reason for Your Visit: Numbness/tingling Attending Provider: Jerry Robles Primary Care Provider: Shawn Avila Discharge Orders/Prescriptions Prescriptions: New aspirin 81 mg tablet,delayed release (DR/EC) 81 mg PO DAILY Qty: 30 RF: 0 Continued atorvastatin [Lipitor] 40 mg Tablet 40 mg PO QHS RF: 0 valacyclovir [Valtrex] 500 mg Tablet 500 mg PO DAILY RF: 0 omeprazole 40 mg Capsule,Delayed Release(Dr/Ec) 40 mg PO DAILY RF: 0 escitalopram oxalate [Lexapro] 10 mg Tablet 20 mg PO DAILY RF: 0 naproxen sodium [Aleve] 220 mg Capsule 440 mg PO DAILY RF: 0 calcium carbonate 600 mg calcium (1,500 mg) Tablet 600 mg PO QHS RF: 0 propranolol 40 mg tablet 40 mg PO QHS RF: 0 cholecalciferol (vitamin D3) [Vitamin D3] 50 mcg (2,000 unit) Capsule 50 mcg PO QHS RF: 0 Multi-Day with Iron 18-400 mg-mcg Tablet 1 tab PO DAILY RF: 0 Referrals / Follow Up: Que Murcia MD [STAFF PHYSICIAN] - Within [address] ([address] Mandujano. Neurologist of choice. ) Shawn Avila MD [Primary Care Provider] - In 1 Week Disposition Disposition (needs filled in before D/C Order can be placed): Home, Self Care
--- NOTE | 2022-02-20 14:52 | DS.PCM_ITS ---
Documented by User: Bela Espinal NP, ACCOUNT RESOLUTION EXPERT-C 02/20/22 15:08 Providers Date of Admission: 02/19/22 Date of Discharge: 02/20/22 Primary Care Physician: Shawn Avila MD Reason For Visit: CVA Diagnosis Discharge Diagnosis (1) Acute CVA (cerebrovascular accident): Status: Acute Code(s): I63.9 - Cerebral infarction, unspecified Medications at Discharge Home Medications Multi-Day with Iron 1 tab PO DAILY 02/19/22 atorvastatin [Lipitor] 40 mg PO QHS 02/19/22 calcium carbonate 600 mg PO QHS 02/19/22 cholecalciferol (vitamin D3) [Vitamin D3] 50 mcg PO QHS 02/19/22 escitalopram oxalate [Lexapro] 20 mg PO DAILY 02/19/22 naproxen sodium [Aleve] 440 mg PO DAILY 02/19/22 omeprazole 40 mg PO DAILY 02/19/22 propranolol 40 mg PO QHS 02/19/22 valacyclovir [Valtrex] 500 mg PO DAILY 02/19/22 aspirin 81 mg PO DAILY #30 tab 02/20/22 Hospital Course Operations None Procedures 2-D Echocardiogram Summary of Care Provided Hospital Course: Patient is a 61 year old female admitted 02/19/22 due to left facial droop and numbness/tingling. 1. Left-sided numbness/tingling-CVA ruled out. Brain CT and CTA of head and neck unremarkable. MRI of brain without stroke. At least 2 nonspecific white matter lesions. SOC neurology consult obtained. Recommends repeat MRI in 6 to 12 months. Outpatient follow-up with neurology. May need additional work-up including spinal tap if she continues to have symptoms concerning for d emyelinating process. 2. Elevated blood pressure without history of hypertension-blood pressure imp roved. Recommend continued outpatient monitoring. 3. Atypical chest pain-troponin and EKG unremarkable. Echo pending and will be reviewed prior to DC. 4. Essential tremors-on propranolol. 5. Anxiety/depression-on Lexapro. 6. Hyperlipidemia-continue statin. 7. GERD-continue PPI. 8. Tobacco dependence-encouraged cessation. 9. History of COVID-19 11/2021 Physical Exam Const alert, oriented x3 and no apparent distress Constitutional Narrative: Orientation / Consciousness: awake, oriented to person, oriented to place and oriented to time HEENT normocephalic and moist oral mucous membranes Eyes PERRL, EOMs intact bilaterally and conjunctivae normal Neck no lymphadenopathy Resp normal respiratory effort and clear to auscultation bilaterally Cardio regular rate, regular rhythm and no murmurs Peripheral Pulses: pulses 2+ throughout GI normal to inspection, nondistended, normoactive bowel sounds, non-tender and non-distended Extremity normal to inspection Skin no rashes or lesions noted Lesions: no lesions Rashes: no rashes Trauma: no lacerations or abrasions Neuro CN's II-XII intact bilaterally, no focal motor deficits, no sensory deficits noted and deep tendon reflexes 2+ bilaterally Neuro Narrative: Mild left facial droop that resolved with smiling. Psych mental status grossly normal and affect normal Patient seen and examined prior to discharge. Physical assessment as noted above. Patient is stable for discharge with follow up recommendations as noted above. This patient was seen by YONY Danielle under the supervision of Dr. Robles. Time spent examining patient, reviewing data and subsequent management of care: 16 Minutes Weight / BMI Weight Weight: 125 lb 10.616 oz Body Mass Index (BMI) 22.2 ABG / Lab / Microbiology Data Result Diagrams: 02/19/22 12:35 02/19/22 12:35 Laboratory: Laboratory Results - last 24 hr 02/19/22 12:35: Hemoglobin A1c 5.9 H 02/20/22 07:25: Triglycerides 116, Cholesterol 165, LDL Cholesterol 67, VLDL Cholesterol 23, HDL Cholesterol 75 Radiography Diagnostic Testing: Radiology Impression Brain MRI 02/19/22 15:07 IMPRESSION: At least 2 nonspecific white matter lesions. Differential considerations include microangiopathic changes or demyelination. Electronically Signed: Jesus Frost MD at 18:36 EDT Reading Location ID and State: [address] [place] [address] , Service support , D/C Instructions Discharge Diet: Low fat / Low cholesterol Call your doctor if you observe: Shortness of breath, Dizziness and Chest pain Meaningful Use Info Meaningful Use Diagnoses (Choose all that apply): None applicable Discharge Plan Admission Admit Date/Time: 02/19/22 15:02 Primary Reason for Your Visit: Numbness/tingling Attending Provider: Jerry Robles Primary Care Provider: Shawn Avila Discharge Orders/Prescriptions Prescriptions: New aspirin 81 mg tablet,delayed release (DR/EC) 81 mg PO DAILY Qty: 30 RF: 0 Continued atorvastatin [Lipitor] 40 mg Tablet 40 mg PO QHS RF: 0 valacyclovir [Valtrex] 500 mg Tablet 500 mg PO DAILY RF: 0 omeprazole 40 mg Capsule,Delayed Release(Dr/Ec) 40 mg PO DAILY RF: 0 escitalopram oxalate [Lexapro] 10 mg Tablet 20 mg PO DAILY RF: 0 naproxen sodium [Aleve] 220 mg Capsule 440 mg PO DAILY RF: 0 calcium carbonate 600 mg calcium (1,500 mg) Tablet 600 mg PO QHS RF: 0 propranolol 40 mg tablet 40 mg PO QHS RF: 0 cholecalciferol (vitamin D3) [Vitamin D3] 50 mcg (2,000 unit) Capsule 50 mcg PO QHS RF: 0 Multi-Day with Iron 18-400 mg-mcg Tablet 1 tab PO DAILY RF: 0 Referrals / Follow Up: Que Murcia MD [STAFF PHYSICIAN] - Within 1 Month (Or Dr. Mandujano. Neurologist of choice. ) Shawn Avila MD [Primary Care Provider] - In 1 Week Disposition Disposition (needs filled in before D/C Order can be placed): Home, Self Care Documented by User: Dr. Jerry Robles DO 02/20/22 17:12 Providers Date of Admission: 02/19/22 Reason For Visit: CVA Medications at Discharge Home Medications Multi-Day with Iron 1 tab PO DAILY 02/19/22 atorvastatin [Lipitor] 40 mg PO QHS 02/19/22 calcium carbonate 600 mg PO QHS 02/19/22 cholecalciferol (vitamin D3) [Vitamin D3] 50 mcg PO QHS 02/19/22 escitalopram oxalate [Lexapro] 20 mg PO DAILY 02/19/22 naproxen sodium [Aleve] 440 mg PO DAILY 02/19/22 omeprazole 40 mg PO DAILY 02/19/22 propranolol 40 mg PO QHS 02/19/22 valacyclovir [Valtrex] 500 mg PO DAILY 02/19/22 aspirin 81 mg PO DAILY #30 tab 02/20/22 ABG / Lab / Microbiology Data Result Diagrams: 02/19/22 12:35 02/19/22 12:35 Discharge Plan Admission Admit Date/Time: 02/19/22 15:02 Primary Reason for Your Visit: Numbness/tingling Attending Provider: Jerry Robles Primary Care Provider: Shawn Avila Discharge Orders/Prescriptions Prescriptions: New aspirin 81 mg tablet,delayed release (DR/EC) 81 mg PO DAILY Qty: 30 RF: 0 Continued atorvastatin [Lipitor] 40 mg Tablet 40 mg PO QHS RF: 0 valacyclovir [Valtrex] 500 mg Tablet 500 mg PO DAILY RF: 0 omeprazole 40 mg Capsule,Delayed Release(Dr/Ec) 40 mg PO DAILY RF: 0 escitalopram oxalate [Lexapro] 10 mg Tablet 20 mg PO DAILY RF: 0 naproxen sodium [Aleve] 220 mg Capsule 440 mg PO DAILY RF: 0 calcium carbonate 600 mg calcium (1,500 mg) Tablet 600 mg PO QHS RF: 0 propranolol 40 mg tablet 40 mg PO QHS RF: 0 cholecalciferol (vitamin D3) [Vitamin D3] 50 mcg (2,000 unit) Capsule 50 mcg PO QHS RF: 0 Multi-Day with Iron 18-400 mg-mcg Tablet 1 tab PO DAILY RF: 0 Referrals / Follow Up: Que Murcia MD [STAFF PHYSICIAN] - Within 1 Month (Or Dr. Mandujano. Neurologist of choice. ) Shawn Avila MD [Primary Care Provider] - In 1 Week Disposition Disposition (needs filled in before D/C Order can be placed): Home, Self Care Charges/Coding Addendum Addendum: Patient was seen and examined independently of Bela Espinal today, her MRI results showed 2 nonspecific white matter lesions approximately 4 mm in diameter will talk to her and her daughter about this result and told her that it does not necessarily mean she has MS. Teleneurology saw the patient today and recommended close follow-up on these areas as an outpatient. There was a small right to left anterior atrial shunt noted to be present. On examination she appeared in good health and spirits, she does not appear to be in any distress. Vital signs as documented. Skin warm and dry and without overt rashes. Neck without JVD, thyroid appears normal, trachea is midline, neck is supple. Lungs clear, normal air movement was noted. Heart exam notable for regular rhythm, normal sounds and absence of murmurs, rubs or gallops. Abdomen unremarkable and without evidence of organomegaly, masses, or abdominal aortic enlargement, bowel sounds are present in all 4 quadrants, no abdominal tenderness was noted. Extremities nonedematous, no cyanosis was noted, no clubbing was noted. Neuro: Cranial nerves II through XII are grossly intact, no focal motor deficits were noted, sensation to light touch and pinprick is intact, motor exam 5/5 throughout. Psych: Patient is alert and oriented x3, she does not appear anxious or depressed, she does not appear agitated. Impression #1 paresthesias of the face-etiology unclear, teleneurology recommended the patient stay on an 81 mg aspirin daily and have a follow-up with neurology as an outpatient. #2 hyperlipidemia #3 chronic depression #4 GERD #5 chronic fatigue-etiology unclear I have reviewed Bela Espinal's discharge summary including her medical assessment and plan of care and with the above additions endorse it. Total clinical time spent by myself addressing the patient's medical issues, reviewing the patient's medical data, and collaborating with the patient's care team: 22-minute Visit Charges OBSV E&M: [id number] Observation care discharge
== END 2022-02-20 14:45 | disposition home or self-care (01) ==
LOC: ED 14:05 → PCU 15:35
PROVIDERS: Nurse Practitioner Family; Admitting Provider Internal Medicine; Emergency Provider Emergency Medicine; Visit Provider Internal Medicine
DX: R20.2 Paresthesia of skin (principal); E11.9 Type 2 diabetes mellitus without complications; G25.0 Essential tremor; F17.210 Nicotine dependence, cigarettes, uncomplicated; K21.9 Gastro-esophageal reflux disease without esophagitis; R27.0 Ataxia, unspecified; R07.89 Other chest pain; F41.9 Anxiety disorder, unspecified; E78.5 Hyperlipidemia, unspecified; F32.A Depression, unspecified; R03.0 Elevated blood-pressure reading, without diagnosis of hypertension; Z79.899 Other long term (current) drug therapy; Z79.82 Long term (current) use of aspirin; R29.810 Facial weakness; R29.703 NIHSS score 3; Z86.16 Personal history of COVID-19
CPT/HCPCS: 36415; 70450; 70496; 70498; 70553; 71045; 80048; 80061; 82962; 83036; 84484; 85025; 85610; 85730; 93005; 93306; 96372; 96374; 96375; 97161; 97165; 97802; 99218; 99285; A9575; Q9967; A4216; G0378